=== PATIENT | female | born 1980 | race Caucasian/White ===

== ENCOUNTER 2017-02-13 19:31 | Emergency (ER) | payer OTHER ==
[~2017-02-13 19:31] MED LIST: ERGO50000 PO
[2017-02-13 19:33] VITALS: BP 140/61; PULSE 48; RESP 16; TEMP 98.6; O2SAT 100
== END 2017-02-13 20:30 | disposition left against medical advice (07) ==
LOC: NED 19:31
DX: R07.9 Chest pain, unspecified (principal); Z53.21 Procedure and treatment not carried out due to patient leaving prior to being seen by health care provider
CPT/HCPCS: 99281